=== PATIENT | female | born 1975 | race Caucasian/White ===

== ENCOUNTER 2019-06-16 04:06 | Emergency (ER) | payer MEDICAID ==
[2019-06-16 04:12] VITALS: Ht 157.5 cm
[2019-06-16 05:05] VITALS: BP 140/64
== END 2019-06-16 05:05 | disposition home or self-care (01) ==
LOC: ED 04:06
DX: R21 Rash and other nonspecific skin eruption (principal); N89.8 Other specified noninflammatory disorders of vagina; L53.9 Erythematous condition, unspecified

== ENCOUNTER 2019-08-13 05:42 | Emergency (ER) | payer OTHER, MEDICAID ==
[~2019-08-13] VITALS: Ht 157.5 cm; Wt 76.3 kg
[2019-08-13 05:58] VITALS: Ht 157.5 cm; Wt 76.3 kg
[2019-08-13 07:33] VITALS: BP 123/69
== END 2019-08-13 07:33 | disposition home or self-care (01) ==
LOC: ED 05:42
DX: M54.2 Cervicalgia (principal); R51 Headache; M79.602 Pain in left arm; V49.49XA Driver injured in collision with other motor vehicles in traffic accident, initial encounter; Y93.I9 Activity, other involving external motion; Y92.413 State road as the place of occurrence of the external cause; Y99.8 Other external cause status
CPT/HCPCS: J1885